=== PATIENT | male | born 1950 | race American Indian/Alaskan Native ===

== ENCOUNTER 2016-08-03 14:38 | Emergency (ER) | payer MEDICAID ==
[2016-08-03] MEDS ORDERED: Sodium Chloride 0.9% 10 ML Syringe FLUSH PRN (14:54)
[2016-08-03] MEDS ORDERED: Aspirin 81 MG Tab.Chew PO ONE (14:54)
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
[2016-08-03 17:33] VITALS: BP 149/86
--- NOTE | 2016-08-04 08:21 | CR ---
Chest: Frontal view of the chest was obtained. Comparison: No previous chest x-ray. Heart size is mildly enlarged with left ventricular configuration. Diffuse interstitial change is seen throughout both lungs. Fibrosis is seen within the lung bases on prior CT abdomen study of 05/05/09 and interstitial findings are most likely chronic. Bony structures are grossly intact. Impression: 1. Diffuse increased interstitial change within both lungs most likely representing fibrosis. 2. Left ventricular configuration of the heart. Diagnostic code #3
== END 2016-08-03 17:25 | disposition home or self-care (01) ==
LOC: JD.ED 14:38
DX: R07.9 Chest pain, unspecified (principal); F41.9 Anxiety disorder, unspecified; F17.210 Nicotine dependence, cigarettes, uncomplicated; Z93.3 Colostomy status; Z88.5 Allergy status to narcotic agent
CPT/HCPCS: 36415; 71010; 80053; 84484; 85025; 85379; 93005; 99285; A9270; J7050; 99283

== ENCOUNTER 2017-08-27 22:34 | Emergency (ER) | payer MEDICAID ==
[2017-08-27 22:45] VITALS: BP 147/85
[2017-08-27] MEDS ORDERED: Sodium Chloride 0.9% 1,000 ML IV STA (22:59)
[2017-08-27] MEDS ORDERED: Ondansetron 4 MG/2 ML SDV IVPUSH ONE (22:59)
[2017-08-27] MEDS ORDERED: Sodium Chloride 0.9% 10 ML Syringe FLUSH PRN ×2 (22:59→23:50)
[2017-08-27] MEDS ORDERED: HYDROmorphone 0.5 MG/0.5 ML SYRINGE IVPUSH ONE (23:01)
[2017-08-27] MEDS ORDERED: Iopamidol 612 MG/ML 150 ML Bottle IVPUSH ONE (23:50)
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
[2017-08-28] MEDS ORDERED: HYDROmorphone 0.5 MG/0.5 ML SYRINGE IVPUSH ONE (01:28)
--- NOTE | 2017-08-29 12:29 | CT ---
CT abdomen and pelvis Technique: Multiple axial sections were obtained from above the dome of the diaphragm inferiorly through the pubic symphysis. Intravenous contrast was utilized. No oral contrast has been given. Delayed images were also obtained through the abdomen and pelvis. Comparison: Prior CT abdomen and pelvis exam of 05/05/09. Findings: Interstitial fibrosis noted within both lung bases. Most of this is seen on previous CT exam. Liver shows no focal parenchymal abnormality. Spleen appears within normal limits. Adrenal glands show no nodules. Kidneys show symmetric contrast enhancement. Right ureter is dilated. Multiple stones numbering approximately 4 are seen within the mid right ureter causing the right proximal ureteral dilatation. Largest stone measures approximately 1.2 cm. Cyst is noted off the left kidney which is increased in size from prior CT exam and measures approximately 4.9 cm in size. Several nonobstructing calculi are seen within both kidneys. These calcifications measure less than 5 mm in size. Pancreas appears within normal limits. Gallbladder contains no calcified gallstones. Atherosclerotic change noted within the aorta and iliac vessels without aneurysm. No retroperitoneal adenopathy or mesenteric abnormalities are seen. Anterior abdominal wall hernia is seen containing loops of dilated small bowel. Small bowel is dilated distal to the hernia and findings most likely due to mid small bowel obstruction due to adhesions. Distal small bowel loops appear normal in size. Previous colostomy is noted. No pelvic mass or adenopathy is seen. Delayed images show contrast within the bladder. Impression: 1. Approximately 4 nonobstructing calculi within the mid right ureter causing proximal hydronephrosis. 2. Multiple small nonobstructing calculi within both kidneys. Left renal cyst also noted. 3. Mildly dilated proximal small bowel loops which is felt compatible at least a partial small bowel obstruction. Etiology not seen and findings most likely due to adhesions. 4. Nonobstructing anterior abdominal wall hernia. 5. Interstitial fibrosis within both lung bases. Diagnostic code #3 I agree with preliminary report from [facility], finalized at 08/28/17, 1:45 AM Central Time
== END 2017-08-28 05:45 | disposition home or self-care (01) ==
LOC: JD.ED 22:34
DX: N13.2 Hydronephrosis with renal and ureteral calculous obstruction (principal); K56.600 Partial intestinal obstruction, unspecified as to cause; F17.210 Nicotine dependence, cigarettes, uncomplicated; Z88.5 Allergy status to narcotic agent; Z91.048 Other nonmedicinal substance allergy status
CPT/HCPCS: 36415; 74177; 80053; 83690; 85025; 96361; 96374; 96375; 96376; 99284; J1170; J2405; J7040; J7050; Q9967

== ENCOUNTER 2020-09-23 15:05 | Emergency (ER) | payer MEDICARE, MEDICAID ==
[2020-09-23 15:16] VITALS: BP 117/76; PULSE 67
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
== END 2020-09-23 17:17 | disposition home or self-care (01) ==
LOC: JD.ED 15:05
DX: M54.12 Radiculopathy, cervical region (principal); M25.511 Pain in right shoulder; E78.00 Pure hypercholesterolemia, unspecified; I10 Essential (primary) hypertension; E11.9 Type 2 diabetes mellitus without complications; E66.9 Obesity, unspecified; Z68.33 Body mass index [BMI] 33.0-33.9, adult; Z72.0 Tobacco use; Z88.5 Allergy status to narcotic agent; Z91.048 Other nonmedicinal substance allergy status; Z79.899 Other long term (current) drug therapy
CPT/HCPCS: 99283

== ENCOUNTER 2020-10-21 23:25 | Emergency (ER) | payer MEDICARE, MEDICAID ==
[2020-10-21 23:39] VITALS: BP 134/77; PULSE 55
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
[2020-10-22] MEDS: Ondansetron 4 MG/2 ML SDV IVPUSH ONE (00:12)
[2020-10-22] MEDS: Sodium Chloride 0.9% 1,000 ML IV SCH (00:12)
[2020-10-22] MEDS: HYDROmorphone 1 MG/ML Syringe IVPUSH ONE (00:12)
--- NOTE | 2020-10-22 08:20 | CT ---
CT abdomen and pelvis Technique: Multiple axial sections were obtained from above the dome of the diaphragm inferiorly through the pubic symphysis. Intravenous and oral contrast were utilized. Delayed images were also obtained through the abdomen and pelvis. Reconstructed coronal and sagittal were obtained. Comparison: Prior CT abdomen and pelvis exam of 05/09/19. Findings: Visualized lung bases show emphysematous change and diffuse interstitial fibrosis. This finding is stable from prior exam. Liver shows diffuse fatty infiltration. Gallbladder is seen and shows no calcifications. Spleen size is normal. Adrenal glands show no abnormality. Pancreas is within normal limits. Abdominal aorta shows mild atherosclerotic change with no aneurysm. No retroperitoneal adenopathy is seen. Bilateral renal calculi are seen which are stable. Cyst is noted off the left kidney measuring 5.0 cm in size which is slightly larger than on the previous exam. Right ureter shows two calcifications on the axial views and what appears to be four calcifications on the coronal study. Largest calculus measures approximately 8 mm. These are compatible with chronic incompletely obstructing mid ureteral calculi. Larger calculi within the ureter are stable from prior exam. Anterior abdominal wall hernia is noted to the midline and to the left of midline which is below the umbilicus. This contains bowel projecting into this defect but shows no evidence of obstruction. Findings are stable from previous exam. Ostomy is noted within the right abdomen which shows no dilatation. Distal jejunum shows mild dilatation without evidence of definite obstruction. No pelvic mass or adenopathy is seen. Diverticuli are seen within the sigmoid colon and descending colon. Delayed images show contrast within the ureters and within the bladder. Midline surgical clips are seen within the abdomen. Bone window settings were reviewed which show mild degenerative change within the spine. Most prominent finding is disc space narrowing and vacuum phenomena within the L2-3 disc. Mild degenerative apophyseal change is noted within the lower lumbar apophyseal joints. Mild degenerative change is noted within the sacroiliac joints. Mild joint space narrowing is also noted within both hips. Impression: 1. Mid right ureteral calculi. As noted above, two calculi are seen on the axial view but four calculi are seen on the coronal view in this area. These findings cause incomplete ureteral obstruction. Findings are fairly similar to prior CT exam. 2. Mildly dilated jejunum with no definite areas of obstruction being seen. 3. Right-sided ostomy shows no dilatation and is stable. 4. Fatty infiltration within the liver. Other stable findings as noted above. Diagnostic code #3 I agree with preliminary report from Kallie finalized on 10/22/20, 3:05 AM CDT, code 1
== END 2020-10-22 03:11 | disposition home or self-care (01) ==
LOC: JD.ED 23:25
DX: R10.12 Left upper quadrant pain (principal); R11.2 Nausea with vomiting, unspecified; E11.9 Type 2 diabetes mellitus without complications; E66.9 Obesity, unspecified; Z68.31 Body mass index [BMI] 31.0-31.9, adult; Z88.5 Allergy status to narcotic agent; Z91.09 Other allergy status, other than to drugs and biological substances; Z72.0 Tobacco use; Z90.49 Acquired absence of other specified parts of digestive tract
CPT/HCPCS: 36415; 74177; 74177-26; 80053; 83690; 85007; 85027; 96374; 96375; 99284; 99284-25; J1170; J2405; J7030

== ENCOUNTER 2020-12-14 16:25 | Emergency (ER) | payer MEDICARE, MEDICAID ==
[2020-12-14 16:47] VITALS: BP 132/78; PULSE 71
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
== END 2020-12-14 17:30 | disposition home or self-care (01) ==
LOC: JD.ED 16:25
DX: G89.29 Other chronic pain (principal); M54.42 Lumbago with sciatica, left side; E78.00 Pure hypercholesterolemia, unspecified; I10 Essential (primary) hypertension; J44.9 Chronic obstructive pulmonary disease, unspecified; N40.0 Benign prostatic hyperplasia without lower urinary tract symptoms; E11.9 Type 2 diabetes mellitus without complications; E66.9 Obesity, unspecified; Z68.31 Body mass index [BMI] 31.0-31.9, adult; Z88.5 Allergy status to narcotic agent; Z91.041 Radiographic dye allergy status; Z79.899 Other long term (current) drug therapy; Z72.0 Tobacco use
CPT/HCPCS: 99283

== ENCOUNTER 2021-02-26 19:18 | Emergency (ER) | payer MEDICARE, MEDICAID ==
[2021-02-26 19:30] VITALS: BP 135/72; PULSE 88
[2021-02-26] MEDS ORDERED: methylPREDNISolone Sodium Succinate 125 MG/2 ML SDV ONE (19:38)
[2021-02-26] MEDS ORDERED: Famotidine 20 MG/2 ML SDV ONE (19:38)
[2021-02-26] MEDS ORDERED: EPINEPHrine 1 MG/ML SDV ONE (19:38)
[2021-02-26] MEDS ORDERED: Famotidine 20 MG/2 ML SDV IVPUSH ONE (19:40)
[2021-02-26] MEDS ORDERED: diphenhydrAMINE 50 MG/ML SDV ONE (19:40)
[2021-02-26] MEDS ORDERED: diphenhydrAMINE 50 MG/ML SDV IVPUSH ONE (19:40)
[2021-02-26] MEDS ORDERED: methylPREDNISolone Sodium Succinate 125 MG/2 ML SDV IVPUSH ONE (19:40)
[2021-02-26] MEDS ORDERED: EPINEPHrine 1 MG/ML SDV SUBCUT ONE (19:40)
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
[2021-02-26] MEDS ORDERED: EPINEPHrine 0.3 MG/0.3 ML Pen Autoinjector IM ONE (19:55)
[2021-02-26] MEDS ORDERED: EPINEPHrine 1 MG/ML SDV IM ONE (19:56)
[2021-02-26] MEDS ORDERED: Racepinephrine 2.25% 0.5 ML Neb Soln NEB ONE (19:56)
[2021-02-26] MEDS ORDERED: Sodium Chloride 0.9% Inhalation Soln 3 ML Neb INH PRN (19:56)
[2021-02-26] MEDS ORDERED: Racepinephrine 2.25% 0.5 ML Neb Soln ONE (19:57)
[2021-02-26 20:44] LABS: CORONAVIRUS COVID-19 NAA NEGATIVE (NEGATIVE)
[2021-02-26] MEDS ORDERED: Sodium Chloride 0.9% 500 ML IV ONE (21:43)
[2021-02-26] MEDS ORDERED: Sodium Chloride 0.9% 1,000 ML IV SCH (21:45)
--- NOTE | 2021-02-27 09:45 | CR ---
EXAM: XR CHEST 1 VIEW LOCATION: [facility] DATE/TIME: 02/26/2021 8:35 PM INDICATION: Allergic reaction COMPARISON: None. IMPRESSION: Low lung volumes. Diffuse bilateral multilobar pulmonary airspace opacities which may reflect edema or infiltrates. No definite pleural effusion. Normal heart size. SIGNED BY: Orlando Nathan MD 02/26/2021 9:51 PM [facility]
--- NOTE | 2021-02-27 09:46 | CT ---
EXAM: CT ANGIO CHEST LOCATION: [facility] DATE/TIME: 02/26/2021 9:52 PM INDICATION: Shortness of breath, tachypnea COMPARISON: None. TECHNIQUE: CT chest pulmonary angiogram during arterial phase injection of IV contrast. Multiplanar reformats and MIP reconstructions were performed. Dose reduction techniques were used. CONTRAST: Isovue 370 100ml FINDINGS: ANGIOGRAM CHEST: Pulmonary arteries are normal caliber and negative for pulmonary emboli. Thoracic aorta is negative for dissection. LUNGS AND PLEURA: Changes of peripheral interstitial fibrosis greater in the mid to lower lungs with significant bronchiectasis and linear reticular opacities. Possible developing of peripheral honeycombing in the posterolateral aspect of both lower lobes. No acute alveolar infiltrates or groundglass opacities. No pleural fluid. MEDIASTINUM/AXILLAE: No pericardial fluid. No lymphadenopathy. Normal caliber esophagus. CORONARY ARTERY CALCIFICATION: Mild. UPPER ABDOMEN: Hepatic steatosis. Left renal cyst, no further follow-up. Postoperative changes anterior abdominal wall, partially visualized with partially visualized discontinuity anterior abdominal wall. MUSCULOSKELETAL: Degenerative changes in the spine. IMPRESSION: 1. No evidence for pulmonary embolism. 2. Normal caliber aorta without dissection. 3. Hepatic steatosis. 4. Changes of peripheral interstitial fibrosis with bronchiectasis and possible developing honeycombing in the posterolateral aspect of both lower lobes. SIGNED BY: Frankie Negron MD 02/26/2021 11:54 PM [facility]
== END 2021-02-27 00:59 | disposition home or self-care (01) ==
LOC: JD.ED 19:18
DX: T78.40XA Allergy, unspecified, initial encounter (principal); R22.0 Localized swelling, mass and lump, head; E78.00 Pure hypercholesterolemia, unspecified; I10 Essential (primary) hypertension; J44.9 Chronic obstructive pulmonary disease, unspecified; N40.0 Benign prostatic hyperplasia without lower urinary tract symptoms; E11.9 Type 2 diabetes mellitus without complications; E66.9 Obesity, unspecified; Z68.31 Body mass index [BMI] 31.0-31.9, adult; Z88.5 Allergy status to narcotic agent; Z91.041 Radiographic dye allergy status; Z20.822 Contact with and (suspected) exposure to COVID-19
CPT/HCPCS: 0240U; 36415; 71045; 71275; 80053; 84484; 85025; 93005; 94640; 96372; 96374; 96375; 99285; A9270; J0171; J1200; J2930; J3490; J7030

== ENCOUNTER 2021-03-01 19:01 | Emergency (ER) | payer MEDICARE, MEDICAID ==
[2021-03-01 19:53] VITALS: BP 143/78; PULSE 61
[2021-03-01 20:12] LABS: CORONAVIRUS COVID-19 NAA NEGATIVE (NEGATIVE)
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
== END 2021-03-01 21:00 | disposition home or self-care (01) ==
LOC: JD.ED 19:01
DX: J10.1 Influenza due to other identified influenza virus with other respiratory manifestations (principal); E78.00 Pure hypercholesterolemia, unspecified; I10 Essential (primary) hypertension; E11.9 Type 2 diabetes mellitus without complications; E66.9 Obesity, unspecified; Z68.34 Body mass index [BMI] 34.0-34.9, adult; Z88.5 Allergy status to narcotic agent; Z91.048 Other nonmedicinal substance allergy status; Z72.0 Tobacco use; Z20.822 Contact with and (suspected) exposure to COVID-19
CPT/HCPCS: 0241U; 87651; 99283

== ENCOUNTER 2022-03-11 22:22 | Emergency (ER) | payer MEDICARE, MEDICAID ==
[2022-03-11 23:40] VITALS: BP 136/86; PULSE 74
[2022-03-11] MEDS ORDERED: Ketorolac 15 MG/ML SDV IVPUSH ONE (23:57)
== END 2022-03-12 03:37 | disposition home or self-care (01) ==
LOC: JD.ED 22:22
DX: N13.2 Hydronephrosis with renal and ureteral calculous obstruction (principal); E78.00 Pure hypercholesterolemia, unspecified; I10 Essential (primary) hypertension; J44.9 Chronic obstructive pulmonary disease, unspecified; N40.0 Benign prostatic hyperplasia without lower urinary tract symptoms; E11.9 Type 2 diabetes mellitus without complications; F17.210 Nicotine dependence, cigarettes, uncomplicated; E66.9 Obesity, unspecified; Z79.899 Other long term (current) drug therapy; Z88.5 Allergy status to narcotic agent; Z91.048 Other nonmedicinal substance allergy status; Z68.28 Body mass index [BMI] 28.0-28.9, adult
CPT/HCPCS: 36415; 74176; 80053; 81001; 85025; 96374; 99284; J1885

== ENCOUNTER 2022-11-05 22:35 | Inpatient (IN) | payer MEDICARE, MEDICAID ==
[2022-11-05] MEDS ORDERED: Ondansetron 4 MG/2 ML SDV IVPUSH ONE (23:10)
[2022-11-05] MEDS ORDERED: HYDROmorphone 0.5 MG/0.5 ML Syringe IVPUSH ONE (23:11)
[2022-11-05] MEDS ORDERED: Naloxone 0.4 MG/ML SDV IVPUSH PRN (23:11)
[2022-11-05 23:15] LABS: BASOPHILS ABSOLUTE AUTO 0.1 K/mm3 (0.0-0.2); BASOPHILS PERCENT AUTO 0.9 % (0.0-1.0); EOSINOPHILS ABSOLUTE AUTO 0.6 K/mm3 (0.0-0.4); EOSINOPHILS PERCENT AUTO 5.5 % (0.0-6.0); HEMATOCRIT 44.7 % (42.0-52.0); HEMOGLOBIN 14.9 gm/dl (14.0-18.0); IMMATURE GRAN ABSOLUTE AUTO 0.03 K/mm3 (0.00-0.05); IMMATURE GRAN PERCENT AUTO 0.3 % (0.0-0.4); LYMPHOCYTES ABSOLUTE AUTO 1.7 K/mm3 (1.0-4.8); MEAN CORPUSCULAR HEMOGLOBIN 29.1 pg (28.0-32.0); MEAN CORPUSCULAR HGB CONC 33.3 g/dl (32.0-36.0); MEAN CORPUSCULAR VOLUME 87.3 fl (83.0-99.0); MONOCYTES ABSOLUTE AUTO 0.6 K/mm3 (0.0-0.8); MONOCYTES PERCENT AUTO 5.6 % (0.0-8.0); NEUTROPHILS ABSOLUTE AUTO 7.5 K/mm3 (1.8-7.7); NEUTROPHILS PERCENT AUTO 71.7 % (41.0-71.0); PLATELET COUNT,PLT 229 K/mm3 (150-400); RED BLOOD CELL COUNT 5.12 M/mm3 (4.52-5.90); WHITE BLOOD CELL COUNT,WBC 10.53 K/mm3 (3.9-11.3)
[2022-11-05] MEDS ORDERED: Sodium Chloride 0.9% 1,000 ML IV SCH (23:15)
[2022-11-05] MEDS: Sodium Chloride 0.9% 10 ML Syringe FLUSH PRN (23:18)
[2022-11-05 23:25] LABS: A/G RATIO 0.8 (1-2); ALANINE AMINOTRANSFERASE,ALT 19 U/L (16-63); ALBUMIN 3.6 g/dl (3.4-5.0); ALKALINE PHOSPHATASE 102 U/L (46-116); ANION GAP 15.7 (5-15); ASPARTATE AMNIOTRANSFERASE,AST 18 U/L (15-37); BILIRUBIN TOTAL 0.4 mg/dL (0.2-1.0); BLOOD UREA NITROGEN,BUN 7 mg/dL (7-18); CALCIUM 8.7 mg/dL (8.5-10.1); CARBON DIOXIDE,CO2 25 mEq/L (21-32); CHLORIDE,CL 104 mEq/L (98-107); EST CRCL DRUG DOSING (CG) 62.03 mL/min; ESTIMATED GFR 81 mL/min (>60); GLUCOSE RANDOM 132 mg/dL (70-99); LIPASE 73 U/L (73-393); MAGNESIUM 1.8 mg/dL (1.8-2.4); POTASSIUM,K 3.7 mEq/L (3.5-5.1); PROTEIN TOTAL,TP 7.9 g/dl (6.4-8.2); SODIUM,NA 141 mEq/L (136-145)
[2022-11-05 23:27] LABS: C-REACTIVE PROTEIN < 0.2 mg/dL (<1.0)
[2022-11-06] MEDS ORDERED: Sodium Chloride 0.9% 10 ML SDV FLUSH ONE (00:39)
[2022-11-06] MEDS ORDERED: Iopamidol 612 MG/ML 100 ML Bottle IVPUSH ONE (00:39)
[2022-11-06] MEDS: Sodium Chloride 0.9% 10 ML Syringe FLUSH PRN (00:41)
[2022-11-06 03:03] LABS: APPEARANCE,URINE CLEAR (Clear); BILIRUBIN,URINE NEGATIVE (Negative); COLOR,URINE YELLOW (Yellow); GLUCOSE,URINE NEGATIVE (Negative); KETONES,URINE NEGATIVE (Negative); LEUKOCYTE ESTERASE,URINE NEGATIVE (Negative); NITRITE,URINE NEGATIVE (Negative); OCCULT BLOOD,URINE TRACE-INTACT (Negative); PH,URINE 5.5 (5.0-8.0); PROTEIN,URINE NEGATIVE (Negative); UROBILINOGEN,URINE 0.2 (0.2-1.0)
[2022-11-06] MEDS: D5 1/2 NS w/ 20 mEq/L KCl 1,000 ML IV SCH ×2 (03:09→12:20)
[2022-11-06 03:29] LABS: BACTERIA,URINE RARE /hpf (FEW); EPITHELIAL CELLS,URINE 0-5 /hpf (0-5); MUCUS,URINE NOT SEEN /hpf (FEW); RBC,URINE 0-5 /hpf (0-5); WBC,URINE 0-5 /hpf (0-5)
[2022-11-06] MEDS ORDERED: Ondansetron 4 MG/2 ML SDV IVPUSH PRN (03:47)
[2022-11-06] MEDS ORDERED: Promethazine 25 MG in Sodium Chloride 0.9% 50 ML IV PRN (03:48)
[2022-11-06] MEDS: HYDROmorphone 0.5 MG/0.5 ML Syringe IVPUSH PRN ×2 (04:10→09:34)
[2022-11-06] MEDS: Enoxaparin 40 MG/0.4 ML Syringe SUBCUT SCH (08:00)
[2022-11-06] MEDS: Insulin Regular, Human 100 Units/ML 3 ML Vial SUBCUT SCH ×4 (08:01→21:01)
[2022-11-07 05:43] LABS: BASOPHILS ABSOLUTE AUTO 0.1 K/mm3 (0.0-0.2); BASOPHILS PERCENT AUTO 0.7 % (0.0-1.0); EOSINOPHILS ABSOLUTE AUTO 0.6 K/mm3 (0.0-0.4); EOSINOPHILS PERCENT AUTO 8.7 % (0.0-6.0); HEMATOCRIT 41.2 % (42.0-52.0); HEMOGLOBIN 13.5 gm/dl (14.0-18.0); IMMATURE GRAN ABSOLUTE AUTO 0.02 K/mm3 (0.00-0.05); IMMATURE GRAN PERCENT AUTO 0.3 % (0.0-0.4); LYMPHOCYTES ABSOLUTE AUTO 1.6 K/mm3 (1.0-4.8); LYMPHOCYTES PERCENT AUTO 21.6 % (24.0-44.0); MEAN CORPUSCULAR HGB CONC 32.8 g/dl (32.0-36.0); MEAN CORPUSCULAR VOLUME 88.4 fl (83.0-99.0); MEAN PLATELET VOLUME 10.1 fl (9.4-12.4); MONOCYTES ABSOLUTE AUTO 0.6 K/mm3 (0.0-0.8); MONOCYTES PERCENT AUTO 7.9 % (0.0-8.0); NEUTROPHILS ABSOLUTE AUTO 4.4 K/mm3 (1.8-7.7); NEUTROPHILS PERCENT AUTO 60.8 % (41.0-71.0); PLATELET COUNT,PLT 195 K/mm3 (150-400); RED BLOOD CELL COUNT 4.66 M/mm3 (4.52-5.90); WHITE BLOOD CELL COUNT,WBC 7.22 K/mm3 (3.9-11.3)
[2022-11-07 06:05] LABS: A/G RATIO 0.7 (1-2); ALBUMIN 2.9 g/dl (3.4-5.0); BILIRUBIN TOTAL 0.3 mg/dL (0.2-1.0); BUN/CREATININE RATIO 11.1 (14-18); CREATININE 0.9 mg/dL (0.7-1.3); EST CRCL DRUG DOSING (CG) 68.92 mL/min; PROTEIN TOTAL,TP 6.8 g/dl (6.4-8.2)
[2022-11-07] MEDS ORDERED: Acetaminophen/HYDROcodone 325-5 MG Tab PO PRN (07:06)
[2022-11-07] MEDS: Insulin Regular, Human 100 Units/ML 3 ML Vial SUBCUT SCH (07:09)
[2022-11-07] MEDS: Enoxaparin 40 MG/0.4 ML Syringe SUBCUT SCH (09:43)
[2022-11-07 11:56] VITALS: BP 125/73; PULSE 51
== END 2022-11-07 11:49 | disposition home or self-care (01) | DRG 389 ==
LOC: JD.ED 22:35 → JD.MS 11-06 02:59
PROVIDERS: ADMIT Family Medicine; ATTEND Family Medicine
DX: K56.600 Partial intestinal obstruction, unspecified as to cause (principal); N13.2 Hydronephrosis with renal and ureteral calculous obstruction; I44.4 Left anterior fascicular block; J44.9 Chronic obstructive pulmonary disease, unspecified; E11.9 Type 2 diabetes mellitus without complications; I10 Essential (primary) hypertension; N40.0 Benign prostatic hyperplasia without lower urinary tract symptoms; F41.9 Anxiety disorder, unspecified; E78.00 Pure hypercholesterolemia, unspecified; E66.9 Obesity, unspecified; F17.210 Nicotine dependence, cigarettes, uncomplicated; K43.9 Ventral hernia without obstruction or gangrene; M54.42 Lumbago with sciatica, left side; G89.29 Other chronic pain; K57.30 Diverticulosis of large intestine without perforation or abscess without bleeding; Z93.3 Colostomy status; Z88.5 Allergy status to narcotic agent; Z91.048 Other nonmedicinal substance allergy status; Z79.899 Other long term (current) drug therapy; Z87.442 Personal history of urinary calculi; Z68.29 Body mass index [BMI] 29.0-29.9, adult; Z98.890 Other specified postprocedural states; Z93.2 Ileostomy status
CPT/HCPCS: 36415; 74177; 80053; 81001; 83690; 83735; 85025; 86140; 93005; J1170; J2405; J3490 ×2; J7030; Q9967; 82947; 93010; 94762; 96374; 96375; 99285; 99285-25; J1650; J1815-GY; J3480

== ENCOUNTER 2023-12-14 07:49 | Emergency (ER) | payer MEDICARE, MEDICAID ==
[2023-12-14] MEDS: methylPREDNISolone Sodium Succinate 125 MG/2 ML SDV IVPUSH ONE (08:06)
[2023-12-14] MEDS: Famotidine 20 MG/2 ML SDV IVPUSH ONE (08:07)
[2023-12-14] MEDS: diphenhydrAMINE 50 MG/ML SDV IVPUSH ONE (08:07)
[2023-12-14] MEDS: Sodium Chloride 0.9% 10 ML Syringe FLUSH PRN (08:07)
[2023-12-14 11:06] VITALS: BP 130/80; PULSE 57
== END 2023-12-14 10:18 | disposition home or self-care (01) ==
LOC: JD.ED 07:49
DX: T78.40XA Allergy, unspecified, initial encounter (principal); I10 Essential (primary) hypertension; J44.9 Chronic obstructive pulmonary disease, unspecified; E66.9 Obesity, unspecified; E11.9 Type 2 diabetes mellitus without complications; Z88.5 Allergy status to narcotic agent; Z91.018 Allergy to other foods; Z91.09 Other allergy status, other than to drugs and biological substances; Z68.29 Body mass index [BMI] 29.0-29.9, adult
CPT/HCPCS: 96374; 96375; 99283; J1200; J2919; J3490; 99284

== ENCOUNTER 2024-01-03 10:52 | Emergency (ER) | payer MEDICARE, MEDICAID ==
[2024-01-03 11:31] VITALS: BP 183/93; PULSE 55
[2024-01-03 12:19] LABS: BASOPHILS ABSOLUTE AUTO 0.1 K/mm3 (0.0-0.2); BASOPHILS PERCENT AUTO 0.8 % (0.0-1.0); EOSINOPHILS ABSOLUTE AUTO 0.2 K/mm3 (0.0-0.4); EOSINOPHILS PERCENT AUTO 2.2 % (0.0-6.0); HEMATOCRIT 45.4 % (42.0-52.0); HEMOGLOBIN 15.1 gm/dl (14.0-18.0); IMMATURE GRAN ABSOLUTE AUTO 0.03 K/mm3 (0.00-0.05); IMMATURE GRAN PERCENT AUTO 0.3 % (0.0-0.4); LYMPHOCYTES ABSOLUTE AUTO 1.7 K/mm3 (1.0-4.8); LYMPHOCYTES PERCENT AUTO 17.6 % (24.0-44.0); MEAN CORPUSCULAR HEMOGLOBIN 28.4 pg (28.0-32.0); MEAN CORPUSCULAR HGB CONC 33.3 g/dl (32.0-36.0); MEAN CORPUSCULAR VOLUME 85.5 fl (83.0-99.0); MEAN PLATELET VOLUME 9.6 fl (9.4-12.4); MONOCYTES ABSOLUTE AUTO 0.6 K/mm3 (0.0-0.8); MONOCYTES PERCENT AUTO 6.8 % (0.0-8.0); NEUTROPHILS ABSOLUTE AUTO 6.8 K/mm3 (1.8-7.7); NEUTROPHILS PERCENT AUTO 72.3 % (41.0-71.0); PLATELET COUNT,PLT 232 K/mm3 (150-400); RED BLOOD CELL COUNT 5.31 M/mm3 (4.52-5.90); WHITE BLOOD CELL COUNT,WBC 9.42 K/mm3 (3.9-11.3)
[2024-01-03 12:45] LABS: A/G RATIO 0.7 (1-2); ALBUMIN 3.4 g/dl (3.4-5.0); ANION GAP 11.5 (5-15); BILIRUBIN TOTAL 0.4 mg/dL (0.2-1.0); C-REACTIVE PROTEIN 0.33 mg/dL (<0.30); CALCIUM 9.6 mg/dL (8.5-10.1); EST CRCL DRUG DOSING (CG) 61.14 mL/min; POTASSIUM,K 3.5 mEq/L (3.5-5.1)
[2024-01-03] MEDS ORDERED: Sodium Chloride 0.9% 10 ML Syringe FLUSH ONE (12:46)
[2024-01-03] MEDS: Iopamidol 612 MG/ML 100 ML Bottle IVPUSH ONE (13:29)
[2024-01-03] MEDS ORDERED: Naloxone 0.4 MG/ML SDV IVPUSH PRN ×2 (14:36→17:27)
[2024-01-03] MEDS: fentaNYL 100 MCG/2 ML SDV IVPUSH ONE ×2 (14:51→17:43)
[2024-01-03 14:58] LABS: APPEARANCE,URINE CLEAR (Clear); BILIRUBIN,URINE NEGATIVE (Negative); COLOR,URINE YELLOW (Yellow); GLUCOSE,URINE NEGATIVE (Negative); KETONES,URINE NEGATIVE (Negative); LEUKOCYTE ESTERASE,URINE NEGATIVE (Negative); NITRITE,URINE NEGATIVE (Negative); OCCULT BLOOD,URINE TRACE-INTACT (Negative); PROTEIN,URINE NEGATIVE (Negative); UROBILINOGEN,URINE 0.2 (0.2-1.0)
[2024-01-03 15:17] LABS: BACTERIA,URINE FEW /hpf (FEW); MUCUS,URINE FEW /hpf (FEW); SQUAMOUS EPITHELIAL CELLS,UR 0-5 /hpf (0-5); WBC,URINE 0-5 /hpf (0-5)
== END 2024-01-03 18:05 ==
LOC: JD.ED 10:52
DX: N20.1 Calculus of ureter (principal); I10 Essential (primary) hypertension; J44.9 Chronic obstructive pulmonary disease, unspecified; E11.9 Type 2 diabetes mellitus without complications; E66.9 Obesity, unspecified; Z68.30 Body mass index [BMI] 30.0-30.9, adult; F17.210 Nicotine dependence, cigarettes, uncomplicated; Z79.84 Long term (current) use of oral hypoglycemic drugs; Z79.82 Long term (current) use of aspirin; Z79.899 Other long term (current) drug therapy; Z88.5 Allergy status to narcotic agent; Z91.018 Allergy to other foods; Z91.041 Radiographic dye allergy status
CPT/HCPCS: 36415; 74177; 80053; 81001; 83690; 85025; 86140; 96374; 96376; 99285; J3010; Q9967

== ENCOUNTER 2024-12-21 19:01 | Emergency (ER) | payer MEDICAID, MEDICARE ==
[2024-12-21] MEDS ORDERED: Sodium Chloride 0.9% 10 ML Syringe FLUSH PRN (19:14)
[2024-12-21 19:44] LABS: BASOPHILS ABSOLUTE AUTO 0.1 K/mm3 (0.0-0.2); BASOPHILS PERCENT AUTO 0.4 % (0.0-1.0); EOSINOPHILS ABSOLUTE AUTO 0.0 K/mm3 (0.0-0.4); EOSINOPHILS PERCENT AUTO 0.0 % (0.0-6.0); IMMATURE GRAN ABSOLUTE AUTO 0.46 K/mm3 (0.00-0.05); IMMATURE GRAN PERCENT AUTO 1.5 % (0.0-0.4); LYMPHOCYTES ABSOLUTE AUTO 1.9 K/mm3 (1.0-4.8); LYMPHOCYTES PERCENT AUTO 6.1 % (24.0-44.0); MEAN PLATELET VOLUME 8.7 fl (9.4-12.4); MONOCYTES ABSOLUTE AUTO 1.8 K/mm3 (0.0-0.8); MONOCYTES PERCENT AUTO 6.0 % (0.0-8.0); NEUTROPHILS ABSOLUTE AUTO 26.5 K/mm3 (1.8-7.7); NEUTROPHILS PERCENT AUTO 86.0 % (41.0-71.0); NRBC ABSOLUTE 0.00 (0.00-0.02); NRBC PERCENT 0.0 % (0.0-0.2); PLATELET COUNT,PLT 442 K/mm3 (150-400); RED BLOOD CELL COUNT 4.77 M/mm3 (4.52-5.90); WHITE BLOOD CELL COUNT,WBC 30.84 K/mm3 (3.9-11.3)
[2024-12-21 19:53] LABS: BICARBONATE,VENOUS 20.8 meq/L (22-26); O2 SATURATION VENOUS 56.0; PCO2 VENOUS 36.0 mmHg (41-51); PH,VENOUS 7.37 (7.30-7.40); PO2 VENOUS 36.0 mmHG (40-80)
[2024-12-21 19:54] LABS: BASE EXCESS VENOUS -3.9 (-4.0-2.0)
[2024-12-21] MEDS: cefTRIAXone 1 GM in Water For Injection, Sterile 10 ML IVPUSH ONE (20:32)
[2024-12-21 20:35] LABS: A/G RATIO 0.3 (1-2); ALANINE AMINOTRANSFERASE,ALT 93.0 U/L (16-63); ASPARTATE AMNIOTRANSFERASE,AST 52.0 U/L (15-37); BILIRUBIN TOTAL 0.6 mg/dL (0.2-1.0); BLOOD UREA NITROGEN,BUN 32.0 mg/dL (7-18); CARBON DIOXIDE,CO2 22.0 mEq/L (21-32); CHLORIDE,CL 95.0 mEq/L (98-107); CREATININE 2.3 mg/dL (0.7-1.3); EST CRCL DRUG DOSING (CG) 24.31 mL/min; ESTIMATED GFR 29.0 mL/min (>60); GLUCOSE RANDOM 168.0 mg/dL (70-99); POTASSIUM,K 4.1 mEq/L (3.5-5.1); PROTEIN TOTAL,TP 8.7 g/dl (6.4-8.2); SODIUM,NA 128.0 mEq/L (136-145)
[2024-12-21] MEDS: Magnesium Sulfat/D5W 1GM/100ML 1 GM in Premix Bag 1 BAG IV ONE (23:41)
[2024-12-21 23:45] VITALS: BP 90/60; PULSE 111
[2024-12-21 23:52] LABS: APPEARANCE,URINE SLT CLOUDY (Clear); GLUCOSE,URINE NEGATIVE (Negative); OCCULT BLOOD,URINE 2+ (Negative)
[2024-12-22 00:15] LABS: EPITHELIAL CELLS,URINE 0-5 /hpf (0-5); WBC CLUMPS,URINE FEW /hpf (NOT SEEN)
[2024-12-22 01:21] LABS: LACTIC ACID 1.9 mmol/L (0.4-2.0)
== END 2024-12-22 03:26 ==
LOC: JD.ED 19:01
DX: I95.9 Hypotension, unspecified (principal); N13.2 Hydronephrosis with renal and ureteral calculous obstruction; N39.0 Urinary tract infection, site not specified; E87.20 Acidosis, unspecified; I10 Essential (primary) hypertension; E78.00 Pure hypercholesterolemia, unspecified; E66.9 Obesity, unspecified; E11.9 Type 2 diabetes mellitus without complications; Z88.8 Allergy status to other drugs, medicaments and biological substances; Z91.018 Allergy to other foods; Z91.09 Other allergy status, other than to drugs and biological substances; Z79.899 Other long term (current) drug therapy; Z68.25 Body mass index [BMI] 25.0-25.9, adult; W19.XXXA Unspecified fall, initial encounter
CPT/HCPCS: 36415; 70450; 71045; 71250; 74176; 80053; 81001; 82803; 82947; 83605; 83735; 83880; 85025; 87040; 87077; 87086; 87088; 87154; 87186; 87428; 93005; 94640; 96361; 96365; 96367; 96375; 99285; A9270; J0696; J2543; J3475; J7030; 93010; 99291